=== PATIENT | male | born 1975 | race Caucasian/White ===

== ENCOUNTER 2017-05-24 05:36 | Day surgery (SDC) | payer OTHER ==
[2017-05-24] VITALS (27 sets, daily range): BP systolic 107–180; BP diastolic 77–88; PULSE 60–85; RESP 13–24; Ht 177.8 cm; Wt 99.3 kg
[~2017-05-24] VITALS: Ht 177.8 cm; Wt 99.3 kg
[2017-05-24 06:28] LABS: BASOPHIL # 0.1 10^3/ul (0.0-0.1); BASOPHILS % 0.7 % (0.0-2.0); EOSINOPHILS # 0.2 10^3/ul (0.0-0.5); EOSINOPHILS % 2.4 % (0.0-7.0); HEMATOCRIT 42.7 % (42.0-52.0); HEMOGLOBIN 14.7 g/dl (14.0-18.0); LYMPHOCYTES % 33.6 % (15.0-51.0); MEAN CORPUSCULAR HEMOGLOBIN 31.2 pg (29.0-33.0); MEAN CORPUSCULAR HGB CONC 34.4 g/dl (32.0-37.0); MEAN CORPUSCULAR VOLUME 90.7 fl (82.0-101.0); MEAN PLATELET VOLUME 10.3 fl (7.4-10.4); MONOCYTE # 0.7 10^3/ul (0.3-0.9); NEUTROPHIL # 4.9 10^3/ul (1.6-7.5); NEUTROPHILS % 54.8 % (39.0-77.0); PLATELET COUNT 339 10^3/UL (140-415); RED BLOOD COUNT 4.71 10^6/ul (4.70-6.10); RED CELL DISTRIBUTION WIDTH 13.2 % (11.5-14.5); WHITE BLOOD COUNT 8.9 10^3/ul (4.8-10.8)
[2017-05-24 06:51] LABS: INR 0.89; PROTIME 12.1 Sec (11.9-14.9); PT RATIO 0.9
[2017-05-24 06:59] LABS: CALCIUM 9.6 mg/dl (8.4-10.2); CREATININE 0.94 mg/dl (0.61-1.24); POTASSIUM 3.6 mmol/L (3.5-5.1)
[2017-05-24] MEDS ORDERED: LIDOCAINE 1% (MDV) 20 ML INJ ONE (07:20)
[2017-05-24] MEDS ORDERED: HEPARIN 1000 UNITS/ML 10 ML INJ ONE (07:20)
[2017-05-24] MEDS ORDERED: VERAPAMIL 5 MG INJ ONE (07:21)
[2017-05-24] MEDS ORDERED: FENTAnyl 50 MCG/ML VIAL ONE (07:26)
[2017-05-24] MEDS ORDERED: MIDAZOLAM 1 MG/ML 2 ML INJ ONE (07:27)
--- NOTE | 2017-05-24 07:30 | OPR ---
Date/Time of Note Date/Time of Note DATE: 05/24/17 TIME: 07:28 Operative Report Procedure Date: May 24, 2017 Preoperative Diagnosis Chest pain, Positive Stress Echo. Postoperative Diagnosis No significant epicardial disease Operation/Procedure Performed Left heart catheterization Surgeon see signature line Sensitized Paper Tester none Anesthesia Type: moderate sedation Estimated Blood Loss: minimal Transfusion none Specimen none Grafts/Implants none Complications none Pt Condition Post Procedure: stable Disposition: PACU Procedure Description DESCRIPTION OF PROCEDURE: The patient placed on mental health associate, pulse oximetry and supplemental oxygen as necessary. The right groin [] was prepped and draped in a sterile fashion and infiltrated with 1% lidocaine. Via the Seldinger technique, the right femoral artery was accessed. A 6-[place] sheath was inserted and through this the right coronary catheter and left coronary catheter and pigtail were advanced into the right coronary artery and left coronary artery and the left ventricle. Placement confirmed by fluoroscopy and hemodynamics. CATHETERIZATION FINDINGS: 1. Left main: No significant disease. 2. LAD: Large caliber vessel with no significant disease. 3. Circumflex: Medium caliber vessel with no significant disease. 4. Obtuse marginal: Medium caliber vessel with no significant disease. 5. RCA: Large dominant vessel with no significant disease HEMODYNAMICS: LVEDP 12 mmHg. No significant aortic valve gradient on pigtail pullback. TOTAL CONTRAST: 30cc FLUOROSCOPY TIME: 2.1 minutes. COMPLICATIONS: None. FINAL RESULTS: No significant epicardial disease RECOMMENDATIONS: Medical management Smoking cessation Discharge home PASCUAL COUCH May 24, 2017 07:30 3 flow. The stent was then placed across the lesion and successfully deployed at [] atmospheres. Post-stent dilatation was performed with the noncompliant balloon. Final coronary angiogram revealed adequate stent expansion, JOSH 3 flow, and no dissection. TOTAL CONTRAST: [] FLUOROSCOPY TIME: [] minutes. COMPLICATIONS: None. FINAL RESULTS: Successful balloon angioplasty and stent placement of the [] with drug-eluting stent []. Pre-intervention stenosis 99%, post-intervention stenosis less than 5%. RECOMMENDATIONS: 1. Continue aspirin 81 mg daily indefinitely. 2. Continue Plavix 75 mg daily for a minimum of 1 year. 3. [place] aggressive medical therapy with aspirin, statin, beta rosette. PASCUAL COUCH May 24, 2017 07:30
--- NOTE | 2017-05-25 14:38 | RADRPT ---
Vent Rate: 62 bpm RR Interval: 0 msec MT Interval: 156 msec QRS Duration: 94 msec QT Interval: 408 msec QTC Interval: 414 msec P-R-T [place]: 58 - 54 - 42 degrees Normal sinus rhythm Normal ECG Electronically Signed By: Anatoliy Martinez [id number]
== END 2017-05-24 11:09 | disposition home or self-care (01) ==
LOC: SDS 05:36
PROVIDERS: ATTEND Internal Medicine
DX: R07.9 Chest pain, unspecified (principal); R94.39 Abnormal result of other cardiovascular function study
CPT/HCPCS: 80048; 85025; 85610; 93005; J1644; J2250; J3010; Z7610